=== PATIENT | female | born 1950 | race American Indian/Alaskan Native ===

== ENCOUNTER 2017-09-04 13:00 | Outpatient (CLI) | payer OTHER ==
[~2017-09-04 13:00] MED LIST: LEVAQUIN750 MG PO; ULTRACET PO
== END 2017-09-04 13:09 | disposition home or self-care (01) ==
LOC: RAD 13:00 → MAMO-SONO 13:15
DX: Z12.31 Encounter for screening mammogram for malignant neoplasm of breast (principal); Z87.898 Personal history of other specified conditions; N60.11 Diffuse cystic mastopathy of right breast; M43.16 Spondylolisthesis, lumbar region

== ENCOUNTER 2017-09-04 14:37 | Outpatient (CLI) | payer OTHER | END 2017-09-04 14:40 | disposition home or self-care (01) | LOC: EKG 14:37 → LAB 14:37 → EKG 14:40 | DX: M43.16 Spondylolisthesis, lumbar region (principal); Z01.810 Encounter for preprocedural cardiovascular examination ==

== ENCOUNTER 2019-04-16 11:49 | Outpatient (CLI) | payer OTHER | END 2019-04-16 12:51 | disposition home or self-care (01) | LOC: MRI 11:49 | DX: M65.88 Other synovitis and tenosynovitis, other site (principal) ==

== ENCOUNTER 2022-04-06 12:32 | Outpatient (CLI) | payer OTHER | END 2022-04-06 12:39 | disposition home or self-care (01) | LOC: MAMO-SONO 12:32 | PROVIDERS: ATTEND Obstetrics & Gynecology | DX: N60.11 Diffuse cystic mastopathy of right breast (principal) ==

== ENCOUNTER 2022-04-19 14:13 | Outpatient (CLI) | payer OTHER | END 2022-04-19 14:17 | disposition home or self-care (01) | LOC: MAMO-SONO 14:13 | PROVIDERS: ATTEND Obstetrics & Gynecology | DX: N60.11 Diffuse cystic mastopathy of right breast (principal) ==

== ENCOUNTER 2022-11-29 10:47 | Outpatient (CLI) | payer OTHER | END 2022-11-29 10:55 | disposition home or self-care (01) | LOC: RAD 10:47 | DX: S82.001A Unspecified fracture of right patella, initial encounter for closed fracture (principal); S42.302A Unspecified fracture of shaft of humerus, left arm, initial encounter for closed fracture ==

== ENCOUNTER 2023-02-13 13:18 | Outpatient (CLI) | payer OTHER | END 2023-02-13 14:00 | disposition home or self-care (01) | LOC: NUCLEAR 13:18 | PROVIDERS: ATTEND Physical Medicine & Rehabilitation | DX: M81.0 Age-related osteoporosis without current pathological fracture (principal) ==

== ENCOUNTER 2023-04-26 10:08 | Outpatient (CLI) | payer OTHER | END 2023-04-26 10:23 | disposition home or self-care (01) | LOC: TOM 10:08 | PROVIDERS: ATTEND Internal Medicine Cardiovascular Disease | DX: I11.9 Hypertensive heart disease without heart failure (principal); E80.6 Other disorders of bilirubin metabolism ==